=== PATIENT | female | born 1975 | race Caucasian/White ===

== ENCOUNTER 2020-07-19 14:53 | Emergency (ER) | payer BC ==
[~2020-07-19] VITALS: Ht 160 cm; Wt 85.9 kg
[2020-07-19 14:58] VITALS: BP 151/85
[2020-07-19] MEDS ORDERED: SODIUM CHLORIDE FLUSH 10ML SYR IVF ONE (15:30)
--- NOTE | 2020-07-19 15:50 | NUR ---
JOB LITHOGRAPHER: PT TO ROOM FROM LOBBY VIA
[2020-07-19 15:54] LABS: BASOPHILS % (AUTO) 1 % (0-1); EOSINOPHILS % (AUTO) 1 % (1-7); LYMPHOCYTES % (AUTO) 19 % (22-44); MEAN CORPUSCULAR HEMOGLOBIN 23.9 pg (27.0-34.8); MEAN CORPUSCULAR HGB CONC 30.4 g/dL (32.4-35.8); MEAN PLATELET VOLUME 8.5 fL (7.4-10.4); MONOCYTES % (AUTO) 7 % (2-9); NEUTROPHILS % (AUTO) 72 % (42-75); PLATELET COUNT 352 x10^3/uL (130-400); RED BLOOD COUNT 4.29 x10^6/uL (3.82-5.3); RED CELL DISTRIBUTION WIDTH 18.6 % (9.6-15.2)
[2020-07-19 16:00] LABS: MD NO
[2020-07-19 16:04] LABS: ALANINE AMINOTRANSFERASE 15 U/L (12-78); ALBUMIN 3.4 g/dL (3.4-5.0); ANION GAP 6 mmol/L (5-15); CALCIUM 8.7 mg/dL (8.5-10.1); CHLORIDE 107 mmol/L (98-107); CREATININE 0.67 mg/dL (0.55-1.02)
[2020-07-19 16:06] LABS: ALKALINE PHOSPHATASE 66 U/L (45-117); BILIRUBIN,TOTAL 0.4 mg/dL (0.2-1.0); TOTAL PROTEIN 7.7 g/dL (6.4-8.2)
[2020-07-19 16:25] LABS: INTERNATIONAL NORMALIZED RATIO 0.87 (0.93-1.1)
[2020-07-19] MEDS ORDERED: APIXABAN 5 MG TABLET PO ONE (16:47)
[2020-07-19] MEDS ORDERED: APIXABAN 5 MG TABLET ONE (17:01)
== END 2020-07-19 17:14 | disposition home or self-care (01) ==
LOC: ED 16:45
DX: I82.411 Acute embolism and thrombosis of right femoral vein (principal); I82.431 Acute embolism and thrombosis of right popliteal vein; I82.441 Acute embolism and thrombosis of right tibial vein; E03.9 Hypothyroidism, unspecified; M79.89 Other specified soft tissue disorders
CPT/HCPCS: 36415; 80053; 85025; 85610; 85730; 99283

== ENCOUNTER → 2020-07-19 | Outpatient (CLI) | payer BC | END | disposition home or self-care (01) | LOC: CFH 14:05 | PROVIDERS: ATTEND Emergency Medicine | DX: I82.431 Acute embolism and thrombosis of right popliteal vein (principal); M79.89 Other specified soft tissue disorders ==